=== PATIENT | female | born 1960 | race Caucasian/White ===

== ENCOUNTER → 2016-07-28 | Outpatient (CLI) | payer OTHER ==
[~2016-07-28] MED LIST: GADOBUTROL 7.5 MMOL/7.5 ML VIAL ONE
== END | disposition home or self-care (01) ==
LOC: CFH 08:30
PROVIDERS: ATTEND Psychiatry & Neurology Neurology
DX: G93.89 Other specified disorders of brain (principal)
CPT/HCPCS: 70553; A9585

== ENCOUNTER 2018-06-27 16:16 | Outpatient (CLI) | payer OTHER | END 2018-06-27 23:59 | disposition home or self-care (01) | LOC: CVU 16:16 | PROVIDERS: ATTEND Internal Medicine Cardiovascular Disease | DX: I08.8 Other rheumatic multiple valve diseases (principal) | CPT/HCPCS: 93306 ==

== ENCOUNTER 2019-04-11 11:57 | Day surgery (SDC) | payer OTHER ==
[~2019-04-11] VITALS: Ht 157.5 cm; Wt 43.0 kg
[2019-04-11] MEDS ORDERED: LEVO137T2 PO (12:16)
[2019-04-11] MEDS ORDERED: PROG50VI INJ (12:16)
[2019-04-11 12:19] VITALS: BP 115/83
[2019-04-11] MEDS ORDERED: LACTATED RINGERS 1,000 ML IV STA (12:24)
[2019-04-11] MEDS ORDERED: LACTATED RINGERS 1,000 ML IV SCH (13:00)
[2019-04-11] MEDS ORDERED: PROPOFOL 10 MG/ML, 20ML ONE ×3 (13:18)
== END 2019-04-11 15:30 | disposition home or self-care (01) ==
LOC: OUT 11:57
PROVIDERS: ATTEND Internal Medicine Geriatric Medicine
DX: R19.5 Other fecal abnormalities (principal); D12.0 Benign neoplasm of cecum; D12.2 Benign neoplasm of ascending colon; K57.30 Diverticulosis of large intestine without perforation or abscess without bleeding; E89.0 Postprocedural hypothyroidism; Z86.010 Personal history of colon polyps; Z88.1 Allergy status to other antibiotic agents; Z88.2 Allergy status to sulfonamides; Z85.850 Personal history of malignant neoplasm of thyroid
CPT/HCPCS: 45381; 45385; 88305; A4648; J2704; J7120

== ENCOUNTER 2019-10-26 08:47 | Outpatient (CLI) | payer OTHER ==
[~2019-10-26 08:47] MED LIST changes: -GADOBUTROL 7.5 MMOL/7.5 ML VIAL ONE; +LEVO137T2 PO; +PROG50VI INJ
== END 2019-10-26 23:59 | disposition home or self-care (01) ==
LOC: CFH 08:47
PROVIDERS: ATTEND Internal Medicine Cardiovascular Disease
DX: I08.8 Other rheumatic multiple valve diseases (principal); R01.1 Cardiac murmur, unspecified
CPT/HCPCS: 93306